=== PATIENT | male | born 1985 | race Caucasian/White ===

== ENCOUNTER 2020-02-04 19:32 | Emergency (ER) | payer MEDICAID ==
[~2020-02-04] VITALS: Ht 180.3 cm; Wt 72.6 kg
--- NOTE | 2020-02-04 19:50 | NUR ---
ED Nurse Note: Patient walked into ED from home c/o right facial abscess onset 1 year ago, states it worsened yesterday when he "popped a pimple." pt states that no discharge came out however he felt that fluids were going under his skin.
[2020-02-04 20:00] VITALS: BP 135/67
--- NOTE | 2020-02-04 20:03 | Emergency Room Report ---
History of Present Illness General Chief Complaint: Skin Rash/Abscess Source: Patient Present Illness HPI Patient presents with swelling and pain in the left face below the eye. He has been squeezing it without getting any discharge. He woke up this morning with some swelling in his right eye. He states that he is having difficulty sleeping because of the pain. The pain is rated 4/10. It does not radiate. He denies any fevers or chills. There is no headache. He smokes marijuana to control the pain but has not taken any medication. Tet 3 years ago. He denies exposure to COVID-19 positive contacts. No sore throat, chest pain, palpitations, nausea, vomiting, diarrhea, dysuria, abdominal pain, shortness of breath, joint pain, depression, anxiety, visual changes, dizziness. 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 Patient History Past Medical History: see triage record Social History: Reports: smoking, drug use - THC Social History Narrative From home Reviewed Nursing Documentation: PMH: Agreed; PSxH: Agreed Nursing Documentation-PMH Past Medical History: No Stated History Review of Systems All Other Systems: negative except mentioned in HPI Physical Exam Vital Signs Date Time Temp Pulse Resp B/P (MAP) Pulse Ox O2 Delivery O2 Flow Rate FiO2 02/04/20 19:34 98.2 95 15 135/67 (89) 100 Room Air Sp02 EP Interpretation: reviewed, normal General Appearance: well appearing, no apparent distress, GCS 15 Head: normocephalic Eyes: right eye other - Minimal swelling below I; bilateral eye normal inspection, bilateral eye PERRL, bilateral eye EOMI ENT: moist mucus membranes Neck: normal inspection Cardiovascular #1: regular rate, rhythm Gastrointestinal: normal inspection Musculoskeletal: gait/station normal Neurologic: alert, grossly normal Psychiatric: mood/affect normal Skin: normal color, warm/dry, other - Area of induration below the eye on the right without fluctuance and minimal erythema is present Medical Decision Making Diagnostic Impression: Primary Impression: Facial cellulitis ER Course Patient presents with a lesion that is worsened over the last few days. Differential includes cellulitis, abscess. The patient does not appear toxic and vital signs are stable. This lesion is not an abscess at this time an incision and drainage is not indicated. However analgesia and antibiotics are indicated. Discussed with patient's treatment plan. Patient requested a sleeping pill. I stated that if pain is controlled he would be able to sleep most likely. Patient stable for outpatient observation and treatment. Last Vital Signs Date Time Temp Pulse Resp B/P (MAP) Pulse Ox O2 Delivery O2 Flow Rate FiO2 02/04/20 20:10 98.2 15 135/67 100 Room Air 02/04/20 20:00 85 Status: improved - Although pain rated at the same to the nurse Disposition: HOME, SELF-CARE Condition: Improved Scripts Ibuprofen* (MOTRIN*) 600 Mg Tablet 600 MG ORAL Q6HR, #20 TAB Prov: Barry Vásquez MD 02/04/20 Bacitracin (Bacitracin) 28.4 Gm Oint...g. 1 APPLIC TOPIC BID, #20 GM Prov: Barry Vásquez MD 02/04/20 Trimethoprim/Sulfamethoxazole 160/800* (BACTRIM DS TABLET*) 1 Each Tablet 1 TAB ORAL Q12H, #14 TAB 0 Refills Prov: Barry Vásquez MD 02/04/20 Barry Vásquez MD Feb 04, 2020 20:03
[2020-02-04] MEDS ORDERED: BACTRIM DS TAB1 EAC1 ORAL (20:05)
[2020-02-04] MEDS ORDERED: BACITRACIN15 GM TOPIC (20:05)
[2020-02-04] MEDS ORDERED: IBUPROFEN600 M1 ORAL (20:05)
[2020-02-04 20:10] VITALS: BP 135/67
--- NOTE | 2020-02-04 20:10 | NUR ---
ER DISCHARGE NOTE: Patient is cleared to be discharged per ERMD, pt is aox4, on room air, with stable vital signs. pt was given dc and prescription instructions, pt was able to verbalize understanding, pt id band removed without complications. pt is able to ambulate with steady gait. pt took all belongings, pt was in a hurry and did not want to wait for medications, states he will go and get them filled at a pharmacy instead.
[2020-02-04] MEDS ORDERED: Bacitracin Oint UD TOPIC ONE (20:15)
[2020-02-04] MEDS ORDERED: Bactrim-DS 1 tab ORAL ONE (20:15)
== END 2020-02-04 20:10 | disposition home or self-care (01) ==
LOC: EMR 20:00
DX: L03.211 Cellulitis of face (principal); Z88.0 Allergy status to penicillin; F17.200 Nicotine dependence, unspecified, uncomplicated
CPT/HCPCS: 99282

== ENCOUNTER 2020-02-12 20:01 | Emergency (ER) | payer MEDICAID ==
[~2020-02-12] VITALS: Ht 180.3 cm; Wt 72.6 kg
[~2020-02-12 20:01] MED LIST: BACITRACIN15 GM TOPIC; BACTRIM DS TAB1 EAC1 ORAL; IBUPROFEN600 M1 ORAL
--- NOTE | 2020-02-12 20:16 | Emergency Room Report ---
History of Present Illness General Chief Complaint: To Be Triaged Source: Patient Present Illness HPI Patient was treated for facial cellulitis. He returns at this time with a secondary lesion and has used all the Bactrim. He has been squeezing this lesion. No drainage. The pain is rated 4/10 and burning and aching and fairly constant. There is no eye swelling at this time. He denies any headache. He denies fevers or chills. The primary lesion drained on its own and is doing much better. No other somatic complaints. Allergies: Coded Allergies: PENICILLINS (Verified Allergy, Unknown, 02/04/20) COVID-19 Screening Contact w/high risk pt: No Experienced COVID-19 symptoms?: No Patient History Past Medical History: see triage record Social History: Reports: smoking, drug use - THC Social History Narrative from home Reviewed Nursing Documentation: PMH: Agreed; PSxH: Agreed Review of Systems Constitutional: Reports: see HPI Eye: Reports: see HPI Skin: Reports: see HPI Neurological: Reports: see HPI Physical Exam Vital Signs Date Time Temp Pulse Resp B/P (MAP) Pulse Ox O2 Delivery O2 Flow Rate FiO2 02/12/20 20:26 97.0 68 18 108/64 (79) 94 02/12/20 20:37 Room Air Sp02 EP Interpretation: reviewed, normal - slightly low as interpreted by me General Appearance: well appearing, no apparent distress, GCS 15 Head: normocephalic Eyes: right eye other - No periorbital swelling; bilateral eye normal inspection, bilateral eye PERRL, bilateral eye EOMI ENT: other - Wearing a mask Neck: normal inspection Respiratory: normal inspection Cardiovascular #1: regular rate, rhythm Gastrointestinal: normal inspection Musculoskeletal: gait/station normal Neurologic: alert, grossly normal Psychiatric: mood/affect normal Skin: normal color, warm/dry, other - 2 lesions right anterior face with 1 with induration without fluctuance Medical Decision Making Diagnostic Impression: Primary Impression: Facial cellulitis ER Course Patient presents after treatment of facial cellulitis. There is a secondary lesion that is present below the first 1. This is not an abscess at this time there is erythema. Antibiotics are indicated. Discussed treatment plan with patient. Patient stable for outpatient observation and treatment. Last Vital Signs Date Time Temp Pulse Resp B/P (MAP) Pulse Ox O2 Delivery O2 Flow Rate FiO2 02/12/20 20:45 98.2 87 18 113/64 99 Room Air Status: unchanged Disposition: HOME, SELF-CARE Condition: Improved Scripts Trimethoprim/Sulfamethoxazole 160/800* (BACTRIM DS TABLET*) 1 Each Tablet 1 TAB ORAL Q12H, #14 TAB 0 Refills Prov: Barry Vásquez MD 02/12/20 Barry Vásquez MD Feb 12, 2020 20:16
[2020-02-12] MEDS ORDERED: BACTRIM DS TAB1 EAC1 ORAL (20:19)
[2020-02-12] MEDS ORDERED: Bactrim-DS 1 tab ORAL ONE (20:30)
[2020-02-12] MEDS ORDERED: Bacitracin Oint UD TOPIC ONE (20:30)
[2020-02-12 20:40] VITALS: BP 113/64
[2020-02-12 20:45] VITALS: BP 113/64
== END 2020-02-12 20:45 | disposition home or self-care (01) ==
LOC: EMR 20:18
DX: L03.211 Cellulitis of face (principal); F17.200 Nicotine dependence, unspecified, uncomplicated; Z88.0 Allergy status to penicillin
CPT/HCPCS: 99282